=== PATIENT | female | born 1955 | race Caucasian/White ===

== ENCOUNTER 2017-12-31 14:01 | Emergency (ER) | payer OTHER ==
--- NOTE | 2017-12-31 14:09 | EDPHY ---
H & P Time Seen by Provider: 12/31/17 14:09 HPI/ROS: CHIEF COMPLAINT: Right-sided chest pain HISTORY OF PRESENT ILLNESS: 62-year-old woman presents with right-sided chest pain starting this morning. Located over her breast, worse with deep breath and worse lying down. Not associated with coughing or leg swelling or fever or chills. No recent injury or trauma. Of note she has been seeing [facility] for bronchiectasis which was diagnosed when she had a persistent cough 2 years ago in [place]. She also started using albuterol saline nebs this past Saturday. She also just returned from a trip to [place] this last week on REVIEW OF SYSTEMS: Eye: no change in vision ENT: no sore throat Cardiac: HPI Pulmonary: no cough or SOB Abdomen: no vomiting, diarrhea, abdominal pain Musculoskeletal: No leg swelling Skin: no rash Neuro: no headache Constitutional: no fever : no urinary symptoms A comprehensive 10 point review of systems is otherwise negative aside from elements mentioned in the history of present illness. PAST MEDICAL HISTORY: Bronchiectasis Social history: Nonsmoker General Appearance: Alert and conversant, cooperative. Eyes: No scleral icterus. ENT, Mouth: Normal mucous membranes. Respiratory: Normal respiratory effort, breath sounds equal, lungs are clear to auscultation. Cardiovascular: Regular rate and rhythm. Gastrointestinal: Abdomen is soft and non tender. Neurological: Alert, face symmetric, normal motor and sensory in extremities. Skin: Warm and dry, no rashes. Musculoskeletal: No calf tenderness. Psychiatric: Not agitated. Emergency Department course/MDM: Patient is noted to be tachycardic at a rate of 108. Plan for EKG and D-dimer, chest imaging: CTA if elevated, x-ray if D-dimer negative. Unlikely to be ACS or dissection or pneumonia. 1450: The D-dimer negative, troponin negative. Pulmonary embolism unlikely at this time, chest x-ray and discharge if negative with symptomatic treatment. 1520: Chest x-ray shows granulomatous disease which is known previously, but no pneumothorax or other reason for acute right-sided chest pain, symptomatic treatment stable for discharge which the patient says she is comfortable with. Smoking Status: Never smoked Constitutional: Initial Vital Signs Temperature (C) 36.7 C 12/31/17 14:05 Heart Rate 108 H 12/31/17 14:05 Respiratory Rate 18 12/31/17 14:05 Blood Pressure 132/90 H 12/31/17 14:05 O2 Sat (%) 98 12/31/17 14:05 O2 Delivery Mode Room Air Allergies/Adverse Reactions: cefaclor [From Ceclor] Allergy (Verified 12/31/17 14:02) Home Medications: Medication Instructions Recorded Albuterol 12/31/17 Baclofen 12/31/17 Estradiol 12/31/17 SUMAtriptan 12/31/17 Medical Decision Making - Diagnostics EKG Interpretation: 12-lead EKG interpreted by me; official reading is in computer system. My interpretation is sinus rhythm rate 99, no acute ST changes Imaging Results: Imaging Impressions Chest X-Ray 12/31/17 14:48 Impression: Focal infiltrates right mid to lower lung. In this patient with history of granulomatous disease, it is difficult to determine if these are acute versus chronic lesions. If indicated, would be helpful to obtain prior chest x-ray or CT chest imaging for comparison. Imaging: I viewed and interpreted images myself Differential Diagnosis: Differential diagnosis considered for chest pain including but not limited to myocardial ischemia, aortic dissection, pericarditis, pulmonary embolus, chest wall pain, pleural inflammation and pulmonary infectious causes. - Data Points Laboratory Results: Laboratory Results 12/31/17 14:25 12/31/17 14:25 12/31/17 12/31/17 12/31/17 14:29 14:25 14:25 WBC RBC Hgb Hct MCV MCH MCHC RDW Plt Count MPV Neut % (Auto) Lymph % (Auto) [place] % (Auto) Eos % (Auto) Baso % (Auto) Nucleat RBC Rel Count Absolute Neuts (auto) Absolute Lymphs (auto) Absolute Monos (auto) Absolute Eos (auto) Absolute Basos (auto) Absolute Nucleated RBC Immature Gran % Immature Gran # D-Dimer < 0.27 ug/mLFEU ug/mLFEU (0.00-0.50) Sodium 140 mEq/L mEq/L (135-145) Potassium 3.9 mEq/L mEq/L (3.3-5.0) Chloride 102 mEq/L mEq/L (97-110) Carbon Dioxide 29 mEq/l mEq/l (22-31) Anion Gap 9 mEq/L mEq/L (6-14) BUN 13 mg/dL mg/dL (7-23) Creatinine 0.6 mg/dL mg/dL (0.6-1.0) Estimated GFR > 60 Glucose 98 mg/dL mg/dL (70-100) Calcium 9.4 mg/dL mg/dL (8.5-10.4) POC Troponin I 0.00 ng/mL ng/mL (0.00-0.08) 12/31/17 14:25 WBC 7.76 10^3/uL 10^3/uL (3.80-9.50) RBC 5.04 10^6/uL 10^6/uL (4.18-5.33) Hgb 14.4 g/dL g/dL (12.6-16.3) Hct 43.6 % % (38.0-47.0) MCV 86.5 fL fL (81.5-99.8) MCH 28.6 pg pg (27.9-34.1) MCHC 33.0 g/dL g/dL (32.4-36.7) RDW 13.2 % % (11.5-15.2) Plt Count 263 10^3/uL 10^3/uL (150-400) MPV 9.2 fL fL (8.7-11.7) Neut % (Auto) 69.3 % % (39.3-74.2) Lymph % (Auto) 18.4 % % (15.0-45.0) [place] % (Auto) 9.0 % % (4.5-13.0) Eos % (Auto) 2.1 % % (0.6-7.6) Baso % (Auto) 0.9 % % (0.3-1.7) Nucleat RBC Rel Count 0.0 % % (0.0-0.2) Absolute Neuts (auto) 5.38 10^3/uL 10^3/uL (1.70-6.50) Absolute Lymphs (auto) 1.43 10^3/uL 10^3/uL (1.00-3.00) Absolute Monos (auto) 0.70 10^3/uL 10^3/uL (0.30-0.80) Absolute Eos (auto) 0.16 10^3/uL 10^3/uL (0.03-0.40) Absolute Basos (auto) 0.07 10^3/uL 10^3/uL (0.02-0.10) Absolute Nucleated RBC 0.00 10^3/uL 10^3/uL (0-0.01) Immature Gran % 0.3 % % (0.0-1.1) Immature Gran # 0.02 10^3/uL 10^3/uL (0.00-0.10) D-Dimer Sodium Potassium Chloride Carbon Dioxide Anion Gap BUN Creatinine Estimated GFR Glucose Calcium POC Troponin I Point of Care Test Results: Chemistry 12/31/17 14:29 POC Troponin I 0.00 ng/mL ng/mL (0.00-0.08) Departure - Departure Disposition: Home, Routine, Self-Care Clinical Impression: Chest pain Qualifiers: Chest pain type: unspecified Qualified Code(s): R07.9 - Chest pain, unspecified Condition: Good Instructions: Chest Pain (ED) Referrals: NONE *PRIMARY CARE P,. [Primary Care Provider] - As per Instructions ([employer], your usual care providers) Nia Triana MD [[facility] [place] - As per Instructions
[2017-12-31 14:33] LABS: PLATELET COUNT 263 10^3/uL (150-400)
--- NOTE | 2017-12-31 14:36 | CPEKG ---
Test Reason : OPEN Blood Pressure : / mmHG Vent. Rate : 098 BPM Atrial Rate : 098 BPM P-R Int : 146 ms QRS Dur : 075 ms QT Int : 346 ms P-R-T Axes : 075 064 059 degrees QTc Int : 442 ms Sinus rhythm Confirmed by Zenon Nguyen ([id number]) on 12/31/2017 2:35:47 PM Referred By: Confirmed By:Zenon Nguyen
[2017-12-31 15:43] VITALS: BP 113/80
== END 2017-12-31 15:42 | disposition home or self-care (01) ==
DX: R07.89 Other chest pain (principal)
CPT/HCPCS: 84484-PO

== ENCOUNTER → 2018-04-17 | Outpatient (CLI) | payer OTHER | LOC: FIMAGING 13:07 | PROVIDERS: ATTEND Internal Medicine | DX: Z12.31 Encounter for screening mammogram for malignant neoplasm of breast (principal) ==